=== PATIENT | male | born 1960 | race Caucasian/White ===

== ENCOUNTER 2024-01-12 12:06 | Emergency (ER) | payer OTHER ==
[~2024-01-12] VITALS: Ht 185.4 cm; Wt 148.4 kg
[2024-01-12] MEDS ORDERED: PROZAC40 MG PO (12:20)
[2024-01-12] MEDS ORDERED: DIPHTH,PERTUSS(ACELL),TET VAC 0.5 ML SYRINGE IM ONE (12:30)
[2024-01-12] MEDS ORDERED: PERCOCET 5-3251 EACH PO (14:55)
[2024-01-12] MEDS ORDERED: CLEOCIN HCL300 MG PO (14:55)
[2024-01-12 15:00] VITALS: BP 165/91
== END 2024-01-12 15:00 | disposition home or self-care (01) ==
LOC: ED 12:06
DX: S62.291A Other fracture of first metacarpal bone, right hand, initial encounter for closed fracture (principal); S62.390A Other fracture of second metacarpal bone, right hand, initial encounter for closed fracture; S51.012A Laceration without foreign body of left elbow, initial encounter; V29.99XA Rider (driver) (passenger) of other motorcycle injured in unspecified traffic accident, initial encounter; Z79.899 Other long term (current) drug therapy; Z23 Encounter for immunization
CPT/HCPCS: 12002; 29125; 73130; 90471; 90715; 99284-25